=== PATIENT | male | born 1990 | race Caucasian/White ===

== ENCOUNTER 2018-08-04 18:45 | Emergency (ER) | payer SELFPAY ==
[~2018-08-04] VITALS: Ht 175.3 cm; Wt 87.0 kg
[2018-08-04 19:03] VITALS: BP 155/131
== END 2018-08-04 20:11 | disposition left against medical advice (07) ==
LOC: EMS 18:46
DX: F41.9 Anxiety disorder, unspecified (principal); Z53.21 Procedure and treatment not carried out due to patient leaving prior to being seen by health care provider